=== PATIENT | female | born 1975 | race Caucasian/White ===

== ENCOUNTER → 2023-06-25 | Outpatient (CLI) | payer MEDICAID, SELFPAY ==
--- NOTE | 2023-06-25 09:20 | RAD_ITS ---
STUDY: X-RAY CHEST REASON FOR EXAM: Female, 48 years old. COUGH TECHNIQUE: PA and lateral views of the chest. COMPARISON: None. FINDINGS: The lungs are clear and expanded. There is no demonstrated pleural abnormality. Normal size heart. Normal mediastinum and michael. Normal visualized pulmonary arteries. Normal visualized aortic arch and descending thoracic aorta. Normal visualized thoracic spine. Normal visualized ribs, clavicles, and shoulders. There is no demonstrated abnormality of the visualized soft tissue structures of the upper abdomen. RAD/Chest PA and Lateral IMPRESSION: Normal x-ray examination of the chest. Electronically Signed: Roger Pandey MD at 9:40 EDT ,
== END | disposition home or self-care (01) ==
LOC: RAD 09:16
PROVIDERS: PCP Family Medicine; Referring Provider Family Medicine; Visit Provider Family Medicine
DX: R05.9 Cough, unspecified (principal); R06.00 Dyspnea, unspecified
CPT/HCPCS: 71046

== ENCOUNTER 2024-05-10 14:57 | Emergency (ER) | payer MEDICAID, SELFPAY ==
[2024-05-10 14:58] VITALS: BP 121/65; PULSE 82; RESP 16; TEMP 36.6; O2SAT 99; BMI 31.1
[2024-05-10 15:05] VITALS: BP 121/65; PULSE 82; RESP 16; TEMP 36.6; O2SAT 99
--- NOTE | 2024-05-10 15:05 | EDS_ITS ---
HPI History of Present Illness Chief Complaint: Numb/Ting Informant: patient and spouse/S.O. Onset/Context/Timing Onset: Yesterday Context: Gradual Onset Narrative Narrative: 49-year-old female states yesterday she started feeling like the right side of her face was tingling a little stop maybe she was having an allergic reaction to something she was eating at the time. This progressed and this morning she noticed that the right of her face is not working. She has had a dry right eye, she cannot close it all the way. She has had a recent sinus infection, she states it is better but she is still on an antibiotic that she was prescribed. She denies any ear pain or tinnitus or hearing loss or major changes in hearing. She denies any peripheral neurologic symptoms. She is healthy and does not take daily medications for any major medical problems. PFSH PFS Medical History no medical history no medical history Home Medications ?Medication ?Instructions ?Recorded ?Last Taken ?Type vits,calcium no.78-iron 1 tab PO DAILY 03/24/13 03/23/13 23:00 History fumarate-folic acid 29 mg-1 mg 1 tablet (Prenatabs FA) ibuprofen 600 mg tablet 600 mg PO Q6H PRN PRN Pain ##60 03/25/13 Unknown Rx prednisone 20 mg tablet 60 mg (3 x 20 mg) PO DAILY 7 days 05/10/24 Unknown Rx #21 tabs valacyclovir 1 gram tablet 1,000 mg PO TID #21 tabs 05/10/24 Unknown Rx Allergy/AdvReac Type Severity Reaction Status Date / Time No Known Allergies Allergy Verified 05/10/24 15:04 Family History no significant family his Surgical History no surgical history Social History Smoking Status: Never smoker ROS ROS ED Constitutional Constitutional ED: Denies chills or fever(s) Eyes Eyes: Reports as per HPI; Denies change in vision or diplopia ENT ENT ED: Denies rhinorrhea or sore throat Cardiovascular Cardiovascular: Denies chest pain or palpitations Respiratory/Chest Respiratory/Chest: Denies cough or dyspnea Gastrointestinal Gastrointestinal: Denies abdominal pain, diarrhea, nausea or vomiting Genitourinary Genitourinary ED: Denies dysuria or hematuria Musculoskeletal Musculoskeletal: Denies back pain or neck pain Integumentary Denies abscess or rash Neurologic Neurologic: Reports as per HPI, paresthesias and weakness; Denies headache(s) Psychiatric Psychiatric: Denies anxiety or suicidal thoughts EXAM Physical Exam Const Vital Signs: 05/10/24 14:58 05/10/24 15:05 Temperature 97.9 F 97.9 F Temperature Source Oral Pulse Rate 82 82 Respiratory Rate 16 16 Blood Pressure 121/65 H 121/65 H Blood Pressure Mean 83 83 Pulse Ox 99 99 Oxygen Delivery Method Room Air Positive well nourished and well developed General Appearance ED: well developed and NAD HEENT Reports moist mucous membranes HEENT Narrative: External ears normal. No periauricular lymphadenopathy or tenderness. No parotid tenderness or swelling. Right facial muscular paralysis and facial droop. normocephalic and atraumatic Eyes PERRL and EOMs intact bilaterally Eyes Narrative: Unable to close right eyelid well Neck full ROM and supple Resp normal respiratory effort and clear to auscultation bilaterally Cardio regular rate, regular rhythm and no murmurs GI non-tender and non-distended Auscultation: normoactive bowel sounds Palpation: soft Back/Spine no CVA tenderness General Back: other FROM Extremity normal to inspection General Extremety ED: Negative for edema, pulses abnormal or tenderness General Extremity: Negative for edema or pulses abnormal Neuro oriented x3 and no sensory deficits noted Neuro Narrative: There is paralysis of the right lower face and weakness of the right frontalis muscle with normal movement of the left, all consistent with a peripheral right 7th nerve palsy. Normal gait. Normal speech. Normal peripheral neurologic exam. Sensorium / Orientation: awake and alert Motor Exam: strength 5/5 throughout Psych mental status grossly normal Skin no rashes or lesions noted and no wounds MDM MDM MDM Narrative Medical decision making narrative: Patient's vital signs are normal, she does not have risk for vascular disease nor a prior diagnosis of, and her exam is consistent with a peripheral 7th nerve palsy and clinically I do not see an obvious etiology. Unclear if this is related to her sinus infection or if that could be the body stressor that is causing this. She presents less than 24 hours after the onset of symptoms, so I think reasonable to try prednisone and valacyclovir for 1 week and follow-up. She wears glasses most of the time, so I do not think she needs an eye patch, she was advised to get eye lubricant and to use it several times throughout the day to prevent her eye from drying out too much. Discharge Plan Triage Chief Complaint: Numb/Ting ED Provider: Jeferson Cummings Dx/Rx/DC Orders Clinical Impression: Right-sided Sin's palsy Instructions: ED Sin's Palsy Prescriptions: New prednisone 20 mg tablet 60 mg PO DAILY 7 Days Qty: 21 0RF valacyclovir 1 gram tablet 1,000 mg PO TID Qty: 21 0RF No Action vit,[id number] [Prenatabs FA] 1 TABLET tablet 1 tab PO DAILY ibuprofen 600 MG tablet 600 mg PO Q6H PRN PRN (Reason: Pain) Qty: 60 1RF Primary Care Provider: Meliza Gutierrez Referrals: Meliza Gutierrez DO [Primary Care Provider] - 10-14 Days if not better Print Language: Macedonian Disposition Disposition: Home, Self Care Discharge Date/Time: 05/10/24 15:19
== END 2024-05-10 15:19 | disposition home or self-care (01) ==
LOC: ED 15:11
PROVIDERS: Emergency Provider Emergency Medicine; PCP Family Medicine; Visit Provider Emergency Medicine
DX: G51.0 Bell's palsy (principal)
CPT/HCPCS: 99282

== ENCOUNTER → 2024-05-18 | Outpatient (CLI) | payer MEDICAID, SELFPAY ==
[2024-05-24 15:07] LABS: Lyme IgG P18 Ab Absent (.); Lyme IgG P23 Ab Absent (.); Lyme IgG P28 Ab Absent (.); Lyme IgG P30 Ab Absent (.); Lyme IgG P39 Ab Absent (.); Lyme IgG P41 Ab Present (.); Lyme IgG P45 Ab Absent (.); Lyme IgG P58 Ab Present (.); Lyme IgG P66 Ab Absent (.); Lyme IgG P93 Ab Absent (.); Lyme IgG WB Interpretation Negative (.); Lyme IgM P23 Ab Absent (.); Lyme IgM P39 Ab Absent (.); Lyme IgM P41 Ab Absent (.); Lyme IgM WB Interpretation Negative (.)
== END | disposition home or self-care (01) ==
PROVIDERS: PCP Family Medicine; Visit Provider Family Medicine
DX: R68.89 Other general symptoms and signs (principal)
CPT/HCPCS: 36415; 86617

== ENCOUNTER → 2024-07-13 | Outpatient (CLI) | payer MEDICAID, SELFPAY ==
[2024-07-18 16:09] LABS: Age Gdln ACOG Testing 30-65 (.); HPV APTIMA, High Risk Negative (Negative)
[2024-07-19 08:06] LABS: HPV Reflexed? YES, CHARGE PATIENT
== END | disposition home or self-care (01) ==
LOC: LABSPEC 15:33
PROVIDERS: PCP Family Medicine; Referring Provider Family Medicine; Visit Provider Family Medicine
DX: Z12.4 Encounter for screening for malignant neoplasm of cervix (principal)
CPT/HCPCS: 87624; 88175; G0145

== ENCOUNTER → 2024-07-31 | Outpatient (CLI) | payer MEDICAID, SELFPAY ==
--- NOTE | 2024-07-31 12:02 | BI_ITS ---
EXAM: SCRN MAMM (CAD)W/TONE BILAT DATE: 07/31/2024 CLINICAL HISTORY: F, Age 49 y/o , SCREENING BREAST CANCER RISK ASSESSMENT: Has not been calculated. TECHNIQUE: Bilateral screening digital breast tomosynthesis with 2D and 3D images. Computer aided detection. COMPARISON: Prior exam(s) dated 12/25/2021. FINDINGS: TISSUE DENSITY: The breast tissue is heterogenously dense, which may obscure small masses. Bilateral Breast Mammographic Findings: No suspicious masses, suspicious cluster of microcalcifications, architectural distortion or secondary sign of malignancy is identified in either breast. Benign-appearing round microcalcifications are seen in both breasts. A stable 2.3 cm well-circumscribed isodense mass in the lateral, far anterior aspect of the right breast is noted. BI/SCRN MAMM (CAD)W/TONE BILAT IMPRESSION: OVERALL FINAL ASSESSMENT: BIRADS 2 BENIGN FINDING RECOMMENDATION: Routine annual follow-up in 1 Year A letter with findings and recommendations will be mailed to the patient. Reading Location: [id number]
== END | disposition home or self-care (01) ==
LOC: OPBI 12:01
PROVIDERS: PCP Family Medicine; Referring Provider Family Medicine; Visit Provider Family Medicine
DX: Z12.31 Encounter for screening mammogram for malignant neoplasm of breast (principal)
CPT/HCPCS: 77063; 77067